=== PATIENT | male | born 1940 | race Caucasian/White ===

== ENCOUNTER 2023-09-11 11:20 | Day surgery (SDC) | payer MEDICAID ==
[~2023-09-11] VITALS: Ht 167.6 cm; Wt 82.6 kg
[2023-09-11 12:33] VITALS: O2SAT 99
[2023-09-11] MEDS ORDERED: MIDAZOLAM HCL 5 MG/5 ML VIAL ONE (12:33)
[2023-09-11] MEDS ORDERED: fentaNYL CITRATE/PF 100 MCG/2 ML AMP ONE (12:33)
[2023-09-11 16:06] VITALS: BP_SYST 138; PULSE 71; RESP 21
== END 2023-09-11 14:35 | disposition home or self-care (01) ==
LOC: SDS 11:20 → SMU 11:21 → SDS 14:35
PROVIDERS: ATTEND Surgery
DX: Z12.11 Encounter for screening for malignant neoplasm of colon (principal); R10.817 Generalized abdominal tenderness; Z98.0 Intestinal bypass and anastomosis status
CPT/HCPCS: 45380; 88305; 99153; 99152; G0378; J2250; J3010